=== PATIENT | female | born 1930 | race Caucasian/White ===

== ENCOUNTER 2016-05-25 19:59 | Observation (INO) | payer OTHER ==
[~2016-05-25] VITALS: Ht 167.6 cm; Wt 63.0 kg
[~2016-05-25 19:59] MED LIST: AVELOX400 MG PO; LEVOTHROID,S0.088 MG PO; LEXAPRO20 MG PO
[2016-05-25] MEDS ORDERED: SYNTHROID75 MCG PO (22:30)
[2016-05-25] MEDS ORDERED: FUROSEMIDE20 MG PO (22:30)
[2016-05-25] MEDS ORDERED: NORTRIPTYLINE H10 MG PO (22:31)
[2016-05-25] MEDS ORDERED: PRAVASTATIN SOD20 MG PO (22:31)
[2016-05-25] MEDS ORDERED: VENLAFAXINE H37.5 MG PO (22:31)
[2016-05-25] MEDS ORDERED: BUSPAR15 MG PO (22:31)
[2016-05-25] MEDS ORDERED: KLOR-CON M2020 MEQ PO (22:31)
[2016-05-25] MEDS ORDERED: TOPIRAMATE25 MG PO (22:32)
[2016-05-25] MEDS ORDERED: CENTRUM SILVER1 EAC4 PO (22:32)
[2016-05-26] VITALS (7 sets, daily range): BP systolic 124–195; BP diastolic 60–89
[2016-05-26 06:02] LABS: MCH 29.6 PG (29.0-34.0); MCHC 31.3 G/DL (30.0-36.0); MCV 94.7 FL (83-99); MEAN PLAT.VOLUME 12.9 uM^3 (9.5-12.4); RBC DIS.WIDTH-CV 14.3 % (11.8-14.6); RBC DIS.WIDTH-SD 49.4 % (39-53); RED BLOOD COUNT 4.12 M/uL (3.80-5.20); WHITE BLOOD COUNT 5.1 K/uL (4.1-10.2)
[2016-05-26 06:33] LABS: ALKALINE PHOSPHATASE 64 IU/L (3-129); ANION GAP 5 MEQ/L (2-14); CHLORIDE 104 MEQ/L (99-109); GFR ESTIMATE (CALCULATED) 45 mL/min/; GLUCOSE 123 mg/dL (70-99); POTASSIUM 4.5 MEQ/L (3.7-5.4); SAMPLE HEMOLYSIS CHECK 0; SAMPLE ICTERIC CHECK 0; SAMPLE LIPEMIA CHECK 0; SODIUM 138 MEQ/L (136-147); TOTAL BILIRUBIN 0.5 MG/DL (0.0-1.0); UREA NITROGEN (BUN) 24 mg/dL (9-23)
[2016-05-26 08:04] LABS: PLATELET COUNT 93 K/uL (156-360)
[2016-05-27 08:34] VITALS: BP 140/80
[2016-05-27] MEDS ORDERED: PERCOCET 5/31 TABLET PO (14:37)
[2016-05-27] MEDS ORDERED: TYLENOL REGULA325 MG PO (14:38)
== END 2016-05-27 13:33 ==
LOC: EME → EDBD 19:59 → 3EAST 23:26 → EDOF 23:26 → 3EAST 05-26 00:12
PROVIDERS: Internal Medicine
DX: S83.91XA Sprain of unspecified site of right knee, initial encounter (principal); S80.01XA Contusion of right knee, initial encounter; W01.0XXA Fall on same level from slipping, tripping and stumbling without subsequent striking against object, initial encounter; M25.561 Pain in right knee; M25.461 Effusion, right knee; Z96.653 Presence of artificial knee joint, bilateral; E03.9 Hypothyroidism, unspecified; E78.5 Hyperlipidemia, unspecified; Z86.711 Personal history of pulmonary embolism; K21.9 Gastro-esophageal reflux disease without esophagitis; G43.909 Migraine, unspecified, not intractable, without status migrainosus; F32.9 Major depressive disorder, single episode, unspecified; E87.5 Hyperkalemia; R79.89 Other specified abnormal findings of blood chemistry
CPT/HCPCS: 73502; 73564; 73700; 80053; 85027; 99281; 99285; G0378; G8978 GP CK; G8979 GP CI; G8987 GO CL; G8988 GO CJ; J1644; J1885; J2270; J2405

== ENCOUNTER 2016-05-27 13:46 | Inpatient (IN) | payer OTHER ==
[~2016-05-27] VITALS: Ht 166.4 cm; Wt 66.1 kg
[~2016-05-27 13:46] MED LIST changes: +BUSPAR15 MG PO; +CENTRUM SILVER1 EAC4 PO; +FUROSEMIDE20 MG PO; +KLOR-CON M2020 MEQ PO; +NORTRIPTYLINE H10 MG PO; +PRAVASTATIN SOD20 MG PO; +SYNTHROID75 MCG PO; +TOPIRAMATE25 MG PO; +VENLAFAXINE H37.5 MG PO
[2016-05-27 14:07] VITALS: BP 144/67
[2016-05-27] MEDS ORDERED: PERCOCET 5/31 TABLET PO (14:37)
[2016-05-27] MEDS ORDERED: TYLENOL REGULA325 MG PO (14:38)
[2016-05-27 15:51] VITALS: BP 141/77
[2016-05-28 00:05] VITALS: BP 156/59
[2016-05-28 05:32] VITALS: BP 150/74
[2016-05-28 05:44] LABS: HEMATOCRIT 35.6 % (36.0-46.0); MCH 30.2 PG (29.0-34.0); MCHC 32.6 G/DL (30.0-36.0); MCV 92.7 FL (83-99); PLATELET COUNT 114 K/uL (156-360); RBC DIS.WIDTH-CV 14.4 % (11.8-14.6); RBC DIS.WIDTH-SD 48.8 % (39-53); RED BLOOD COUNT 3.84 M/uL (3.80-5.20); WHITE BLOOD COUNT 6.4 K/uL (4.1-10.2)
[2016-05-28 06:18] LABS: ALKALINE PHOSPHATASE 50 IU/L (3-129); ANION GAP 6 MEQ/L (2-14); CHLORIDE 104 MEQ/L (99-109); GFR ESTIMATE (CALCULATED) 50 mL/min/; GLUCOSE 103 mg/dL (70-99); POTASSIUM 3.7 MEQ/L (3.7-5.4); SAMPLE HEMOLYSIS CHECK 0; SAMPLE ICTERIC CHECK 0; SAMPLE LIPEMIA CHECK 0; SODIUM 139 MEQ/L (136-147); TOTAL BILIRUBIN 0.6 MG/DL (0.0-1.0); UREA NITROGEN (BUN) 18 mg/dL (9-23)
[2016-05-28 15:26] VITALS: BP 155/81
[2016-05-29 05:11] VITALS: BP 126/73
[2016-05-29 15:40] VITALS: BP 140/58
[2016-05-30 05:04] VITALS: BP 161/79
[2016-05-30 15:34] VITALS: BP 136/66
[2016-05-31 06:11] VITALS: BP 165/79
[2016-05-31 15:07] VITALS: BP 139/65
[2016-06-01 05:43] VITALS: BP 173/72
[2016-06-01 15:40] VITALS: BP 133/85
[2016-06-02 05:41] VITALS: BP 159/74
[2016-06-02 14:41] VITALS: BP 115/71
[2016-06-02 15:56] VITALS: BP 148/77
[2016-06-03 04:49] VITALS: BP 167/70
[2016-06-03 15:55] VITALS: BP 144/91
[2016-06-04 05:40] VITALS: BP 168/74
[2016-06-04] MEDS ORDERED: LIDOCAINE700 MG TD (11:43)
[2016-06-04] MEDS ORDERED: ASPIRIN EC325 MG PO (11:43)
[2016-06-04] MEDS ORDERED: PRAVASTATIN SOD40 MG PO (11:43)
[2016-06-04] MEDS ORDERED: VITAMIN D-3 401 EACH PO (11:43)
[2016-06-04] MEDS ORDERED: PERCOCET 5/31 TABLET PO (11:43)
[2016-06-04] MEDS ORDERED: SENNA PLUS TAB1 EACH PO (11:43)
== END 2016-06-04 15:30 | disposition home health service (06) | DRG 556 ==
LOC: 3WEST 13:46
PROVIDERS: Physical Medicine & Rehabilitation Pain Medicine
PROC: F07M0ZZ Range of Motion and Joint Mobility Treatment of Musculoskeletal System - Whole Body (ICD-10-PCS; principal; 2016-05-27)
DX: R26.2 Difficulty in walking, not elsewhere classified (principal); G89.11 Acute pain due to trauma; S89.81XD Other specified injuries of right lower leg, subsequent encounter; D69.6 Thrombocytopenia, unspecified; E77.8 Other disorders of glycoprotein metabolism; E88.09 Other disorders of plasma-protein metabolism, not elsewhere classified; E78.5 Hyperlipidemia, unspecified; E03.9 Hypothyroidism, unspecified; F32.9 Major depressive disorder, single episode, unspecified; G43.909 Migraine, unspecified, not intractable, without status migrainosus; W01.0XXD Fall on same level from slipping, tripping and stumbling without subsequent striking against object, subsequent encounter; Z96.653 Presence of artificial knee joint, bilateral; Z95.828 Presence of other vascular implants and grafts; Z86.711 Personal history of pulmonary embolism; Z88.0 Allergy status to penicillin
CPT/HCPCS: 73564; 80053; 85027; 97110 GO; 97530 GP; J1644